=== PATIENT | female | born 1990 | race Caucasian/White ===

== ENCOUNTER → 2017-03-18 | Outpatient (CLI) | payer OTHER ==
--- NOTE | 2017-03-18 16:21 | US ---
EXAMINATION TYPE: US thyroid st tissue head/neck DATE OF EXAM: 03/18/2017 4:01 PM COMPARISON: 07/27/2016 CLINICAL HISTORY: E04.1 Nontoxic single thyroid nodule. Prior FNA GLAND SIZE: Right Lobe: 5.1 x 1.8 x 1.3 cm Overall Parenchyma: homogenous Left Lobe: 4.3 x 1.6 x 1.1 cm Overall Parenchyma: homogeneous Isthmus Thickness: 0.4 cm NODULES RIGHT: # of nodules measured on right: 1 1. 1.1 X 0.6 x 0.5 cm hypoechoic mixed nodule at the mid pole with well-defined margins. This nodu le is wider than tall and shows no intranodular vascularity. Prior size: 1.9 x 1.5 x 1.1 cm LEFT: # of nodules measured on left: 0 ISTHMUS: # of nodules measured in the isthmus: 0 1 Bilateral neck scanned, no evidence of lymphadenopathy. IMPRESSION: 1. Nonspecific nodule right thyroid lobe. Nodule is smaller in size and on the prior examination. The need to biopsy should be made on a clinical basis.
[2017-03-18 16:35] LABS: CH 30.2; CHCM 33.2; HCT 47.8 % (34.0-46.0); HDW 2.32; HGB 15.1 gm/dL (11.4-16.0); MCH 28.8 pg (25.0-35.0); MCHC 31.6 g/dL (31.0-37.0); MCV 91.4 fL (80.0-100.0); Mean Platelet Volume 6.7; RBC 5.24 m/uL (3.80-5.40); WBC 18.5 k/uL (3.8-10.6)
[2017-03-18 16:55] LABS: % Iron Saturation 42.2 % (20-50)
== END | disposition home or self-care (01) ==
LOC: RADUSWWP 15:37
PROVIDERS: ATTEND Internal Medicine Endocrinology, Diabetes & Metabolism
DX: E04.1 Nontoxic single thyroid nodule (principal); E55.9 Vitamin D deficiency, unspecified; R53.83 Other fatigue
CPT/HCPCS: 36415; 76536; 82306; 82533; 82607; 82728; 83540; 83550; 84439; 84443; 85027

== ENCOUNTER → 2017-11-12 | Outpatient (CLI) | payer OTHER ==
[2017-11-12 19:05] LABS: Vitamin D 25 Hydroxy 25.2 ng/mL (30.0-100.0)
== END | disposition home or self-care (01) ==
LOC: LABWHC1 12:55
PROVIDERS: ATTEND Internal Medicine Endocrinology, Diabetes & Metabolism
DX: E55.9 Vitamin D deficiency, unspecified (principal); R53.83 Other fatigue
CPT/HCPCS: 36415; 82024; 82306; 82533

== ENCOUNTER → 2018-01-28 | Outpatient (CLI) | payer OTHER ==
--- NOTE | 2018-01-28 11:32 | US ---
EXAMINATION TYPE: US pelvis complete transvag DATE OF EXAM: 01/28/2018 COMPARISON: CT abdomen pelvis 10/28/2015, ultrasound pelvis 05/18/2016 CLINICAL HISTORY: N83.20 Unspecified Ovarian Cysts. known left ovarian teratoma TECHNIQUE: TA and TV. Transabdominal sonographic images of the pelvis were acquired. Transvaginal sonographic images were medically necessary to better assess the following anatomy: left ovary Date of LMP: unknown EXAM MEASUREMENTS: Uterus: 8.8 x 4.3 x 4.1 cm Endometrial Stripe: 1.2 cm Right Ovary: 3.4 x 2.3 x 3.0 cm Left Ovary: 7.5 x 7.1 x 8.5 cm 1. Uterus: Anteverted mild free fluid noted within cervical canal 2. Endometrium: wnl 3. Right Ovary: 2.6cm hypoechoic focus possibly hemorrhagic cyst seen, could not image ovary transva ginally 4. Left Ovary: 8.2cm complex lesion seen with echogenic focus transvaginally with solid component 5. Bilateral Adnexa: wnl 6. Posterior cul-de-sac: wnl IMPRESSION: Ovarian teratoma has grown somewhat in the interval. Small amount of fluid is noted in th e lower uterine segment, cervix region
== END | disposition home or self-care (01) ==
LOC: RADUSWWP 08:35
PROVIDERS: ATTEND Obstetrics & Gynecology
DX: D27.1 Benign neoplasm of left ovary (principal)
CPT/HCPCS: 76830; 76856

== ENCOUNTER → 2018-01-28 | Outpatient (CLI) | payer OTHER ==
--- NOTE | 2018-01-28 13:20 | US ---
EXAMINATION TYPE: US abdomen limited DATE OF EXAM: 01/28/2018 COMPARISON: NONE CLINICAL HISTORY: Abnormal Liver Function tests R94.5. epigastric pain EXAM MEASUREMENTS: Liver Length: 15.9 cm Gallbladder Wall: 0.3 cm CBD: 0.3 cm Right Kidney: 9.4 x 5.3 x 4.6 cm *overlying bowel gas and body habitus limits exam Pancreas: limited views Liver: intercostal imaging only due to reasons stated above and the ultrasound poorly penetrates th e liver Gallbladder: fold seen, otherwise wnl Evidence for sonographic Madrigal's sign: no CBD: wnl Right Kidney: wnl Cortical medullary differentiation is maintained. There is no ascites. IMPRESSION: There are some limitations to the exam. Correlate for hepatic steatosis.
== END ==
LOC: RADUSWWP 08:33
PROVIDERS: ATTEND Internal Medicine Gastroenterology
DX: K21.9 Gastro-esophageal reflux disease without esophagitis (principal); K30 Functional dyspepsia; R94.5 Abnormal results of liver function studies; E78.5 Hyperlipidemia, unspecified
CPT/HCPCS: 76705

== ENCOUNTER → 2018-05-12 | Outpatient (CLI) | payer OTHER ==
--- NOTE | 2018-05-12 12:55 | US ---
EXAMINATION TYPE: US thyroid st tissue head/neck DATE OF EXAM: 05/12/2018 COMPARISON: 03/18/2017 CLINICAL HISTORY: 27-year-old female E04.1 NONTOXIC SINGLE THYROID NODULE. F/U TECHNIQUE: Multiple sonographic images of the thyroid gland are obtained. FINDINGS: GLAND SIZE: Right Lobe: 5.2 x 1.3 x 1.7 cm Overall Parenchyma: homogenous Left Lobe: 4.7 x 1.1 x 1.5 cm Overall Parenchyma: homogeneous Isthmus Thickness: 0.3 cm NODULES RIGHT: # of nodules measured on right: 1 1. 1.0 X 0.6 x 0.5 cm hypoechoic solid nodule at the mid pole with poorly defined margins; this nod ule is wider than tall and shows some peripheral vascularity. Prior size: 1.1 x 0.6 x 0.5 cm Bilateral neck scanned, no evidence of lymphadenopathy. Stable nodule on right. IMPRESSION: Stable 1 cm solid nodule right mid pole.
== END | disposition home or self-care (01) ==
LOC: RADUSWWP 11:13
PROVIDERS: ATTEND Internal Medicine Endocrinology, Diabetes & Metabolism
DX: E04.1 Nontoxic single thyroid nodule (principal)
CPT/HCPCS: 76536

== ENCOUNTER → 2018-05-12 | Outpatient (CLI) | payer OTHER ==
[2018-05-12 12:18] LABS: Anion Gap 10 mmol/L; Blood Urea Nitrogen 14 mg/dL (7-17); Calcium 9.2 mg/dL (8.4-10.2); Carbon Dioxide 25 mmol/L (22-30); Chloride 105 mmol/L (98-107); Cholesterol 257 mg/dL (<200); Glucose 90 mg/dL (74-99); HDL Cholesterol 49 mg/dL (40-60); LDL Cholesterol,Calculated 186 mg/dL (0-99); Sodium 140 mmol/L (137-145); Triglycerides 108 mg/dL (<150)
[2018-05-12 12:35] LABS: T4, Free (Free Thyroxine) 1.07 ng/dL (0.78-2.19)
[2018-05-12 20:09] LABS: Vitamin D 25 Hydroxy 28.8 ng/mL (30.0-100.0)
== END | disposition home or self-care (01) ==
LOC: LABWHC1 11:05
PROVIDERS: ATTEND Internal Medicine Endocrinology, Diabetes & Metabolism
DX: Z00.01 Encounter for general adult medical examination with abnormal findings (principal); E55.9 Vitamin D deficiency, unspecified; R63.8 Other symptoms and signs concerning food and fluid intake; R53.83 Other fatigue; E04.9 Nontoxic goiter, unspecified; Z13.1 Encounter for screening for diabetes mellitus; E78.00 Pure hypercholesterolemia, unspecified
CPT/HCPCS: 36415; 80048; 80061; 82306; 82607; 84439; 84443

== ENCOUNTER → 2018-08-01 | Outpatient (CLI) | payer OTHER ==
--- NOTE | 2018-08-01 14:52 | US ---
EXAMINATION TYPE: Transabdominal DATE OF EXAM: 02/08/18 COMPARISON: US January 28, 2018. CT abdomen pelvis October 28, 2015. CLINICAL HISTORY: Z36 confirm dates. Positive beta-hCG test. EXAM PERFORMED: Transabdominal (TA), patient refused transvag EXAM MEASUREMENTS: GESTATIONAL AGE / DATING Physician Established: Not yet established Dates by LMP: ( 9 weeks/2 days) EDC: 03/04/19 Dates by First Scan: No previous this is first scan Dates by Current Scan for: (9 weeks/ 0 days) EDC: 03/06/19 MATERNAL ANATOMY Uterus: 12.3 x 5.0 x 7.8cm Right Ovary: 3.6 x 2.5 x 2.4cm Left Ovary: 7.9 x 5.4 x 5.3cm, hyperechoic mass measuring 4.1 x 4.1 x 3.5cm Post CDS / Adnexa: wnl Presence of free fluid: Presence of subchorionic bleed: no GESTATION / SURVEY CRL: 2.3cm (9 weeks/0 days) Yolk Sac (normal less than 6mm): 0.3cm Heart Rate: 160 bpm Rhythm: Normal IUP: Viable IUP Date of LMP: 05/28/18 Beta HcG (if available): Not available at this time Single live intrauterine gestation is confirmed as gestational sac, yolk sac, pole are present. No free fluid is seen in pelvic cul-de-sac. Both ovaries are present. Within left ovary there is persistent heterogeneous solid mass that has rou nd hyperechoic 4.1 cm component along the periphery with surrounding low level echoes or hypoechoic c omponent. Overall size is not significantly changed from prior. No new suspicious extraovarian adnexa l masses are seen. IMPRESSION: Single live intrauterine gestation is confirmed, mean crown-rump length is 2.3 cm corresponding to 9 weeks 0 day old fetus. Solid left ovarian mass or neoplasm consistent with known teratoma is redemons trated without significant change from 2015 CT.
== END ==
LOC: RADUSWWP 13:02
PROVIDERS: ATTEND Obstetrics & Gynecology
DX: Z36.89 Encounter for other specified antenatal screening (principal); Z3A.09 9 weeks gestation of pregnancy
CPT/HCPCS: 76801

== ENCOUNTER → 2018-12-13 | Outpatient (CLI) | payer OTHER ==
--- NOTE | 2018-12-13 15:54 | US ---
EXAMINATION TYPE: US thyroid st tissue head/neck DATE OF EXAM: 12/13/2018 COMPARISON: Prior thyroid ultrasound 05/12/2018 CLINICAL HISTORY: E04.1 Thyroid Nodule. Follow up nodule. No thyroid meds. Hx of Bx- inconclusive GLAND SIZE: Right Lobe: 5.1 x 2.1 x 1.5 cm Overall Parenchyma: homogenous Left Lobe: 4.7 x 1.8 x 0.9 cm Overall Parenchyma: homogeneous Isthmus Thickness: 0.3 cm NODULES RIGHT: # of nodules measured on right: 1 1. 0.9 X 0.8 x 0.6 cm hypoechoic solid nodule at the mid pole with poorly defined margins. This no dule is wider than tall and shows intranodular and peripheral vascularity. Prior size: 1.0 x 0.6 x 0.5 cm LEFT: # of nodules measured on left: 0 ISTHMUS: # of nodules measured in the isthmus: 0 Bilateral neck scanned, no evidence of lymphadenopathy. Right-sided thyroid nodule somewhat more hypoechoic than on prior exam. Left lobe shows homogenous ec hotexture. IMPRESSION: Thyroid nodule shows a similar size to prior exam, additional findings above.
== END ==
LOC: RADUSWWP 12:23
PROVIDERS: ATTEND Internal Medicine Endocrinology, Diabetes & Metabolism
DX: E04.1 Nontoxic single thyroid nodule (principal)
CPT/HCPCS: 76536

== ENCOUNTER → 2018-12-13 | Outpatient (CLI) | payer OTHER ==
[2018-12-13 14:00] LABS: HGB 12.5 gm/dL (11.4-16.0); MCH 29.4 pg (25.0-35.0); MCHC 33.7 g/dL (31.0-37.0); MCV 87.4 fL (80.0-100.0); Mean Platelet Volume 6.7; Platelet Count 307 k/uL (150-450); RBC 4.23 m/uL (3.80-5.40); RDW 13.4 % (11.5-15.5); WBC 13.5 k/uL (3.8-10.6)
[2018-12-13 20:49] LABS: T4, Free (Free Thyroxine) 0.9 ng/dL (0.80-1.80)
== END | disposition home or self-care (01) ==
LOC: LABWHC1 12:20
PROVIDERS: ATTEND Obstetrics & Gynecology
DX: O99.282 Endocrine, nutritional and metabolic diseases complicating pregnancy, second trimester (principal); E04.1 Nontoxic single thyroid nodule; Z3A.00 Weeks of gestation of pregnancy not specified
CPT/HCPCS: 36415; 82950; 84439; 84443; 85027

== ENCOUNTER 2019-03-03 07:43 | Inpatient (IN) | payer OTHER ==
[2019-03-03 08:55] LABS: Appearance,Urine Clear (Clear); Bilirubin,Urine Negative (Negative); Blood,Urine Negative (Negative); Color,Urine Yellow; Glucose,Urine (UA) Negative (Negative); Ketones,Urine Negative (Negative); Leukocyte Esterase,Urine Negative (Negative); Nitrite,Urine Negative (Negative); PH, Urine 6.5 (5.0-8.0); Protein,Urine Negative (Negative); Specific Gravity,Urine 1.014 (1.001-1.035); Urobilinogen,Urine <2.0 mg/dL (<2.0)
[2019-03-03] MEDS ORDERED: METHYLERGONOVINE 0.2 MG/ML 1 ML AMP IM PRN (09:23)
[2019-03-03] MEDS ORDERED: TERBUTALINE 1 MG/ML VIAL SQ PRN (09:23)
[2019-03-03] MEDS ORDERED: LIDOCAINE 0.5% (PF) 5 MG/ML (50 ML SDV) SQ PRN (09:23)
[2019-03-03] MEDS ORDERED: OXYTOCIN 10 UNIT/ML 1 ML VIAL IM PRN (09:23)
[2019-03-03] MEDS ORDERED: CARBOPROST TROMETHAMINE 250 MCG/ML 1 ML AMP IM PRN (09:23)
[2019-03-03] MEDS ORDERED: OXYTOCIN 30 UNITS/500 ML NS 30 UNIT in SALINE 1 500ML.BAG IV SCH (09:30)
[2019-03-03 09:40] VITALS: BMI 47.6
[2019-03-03 10:12] LABS: Basophils % (A) 0 %; Eosinophils % (A) 0 %; HCT 37.7 % (34.0-46.0); HGB 12.3 gm/dL (11.4-16.0); Lymphocytes # (A) 2.8 k/uL (1.0-4.8); Lymphocytes % (A) 17 %; MCH 27.1 pg (25.0-35.0); MCHC 32.7 g/dL (31.0-37.0); MCV 82.8 fL (80.0-100.0); Mean Platelet Volume 7.7; Monocytes # (A) 0.5 k/uL (0-1.0); Monocytes % (A) 3 %; Neutrophils # (A) 12.4 k/uL (1.3-7.7); Neutrophils % (A) 78 %; Platelet Count 328 k/uL (150-450); RBC 4.55 m/uL (3.80-5.40); WBC 15.9 k/uL (3.8-10.6)
[2019-03-03 10:20] LABS: ALT 31 U/L (9-52); AST 12 U/L (14-36); Blood Urea Nitrogen 9 mg/dL (7-17); LDH 346 U/L (313-618); Uric Acid 5.8 mg/dL (3.7-7.4)
[2019-03-03 10:25] LABS: INR 0.8 (<1.2); Partial Thromboplastin Time 22.1 sec (22.0-30.0); Prothrombin Time 9.3 sec (9.0-12.0)
[2019-03-03] MEDS: LACTATED RINGERS 1,000 ML IV SCH ×2 (11:27→11:35)
[2019-03-03] MEDS ORDERED: LANOLIN CREAM 5 GM TUBE TOPICAL PRN (15:22)
[2019-03-03] MEDS ORDERED: diphenhydrAMINE 50 MG CAP PO PRN (15:22)
[2019-03-03] MEDS ORDERED: diphenhydrAMINE 50 MG/ML 1 ML VIAL IVP PRN ×2 (15:22)
[2019-03-03] MEDS ORDERED: WITCH HAZEL 1 EACH MED..PAD TOPICAL PRN (15:22)
[2019-03-03] MEDS ORDERED: ZOLPIDEM 5 MG TAB PO PRN (15:22)
[2019-03-03] MEDS ORDERED: SIMETHICONE 80 MG CHEWABLE PO PRN (15:22)
[2019-03-03] MEDS ORDERED: HYDROCORTISONE 2.5% RECTAL CREAM 30 GM TUBE RECTAL PRN (15:22)
[2019-03-03] MEDS ORDERED: BENZOCAINE/MENTHOL SPRAY 1 GM/SPRAY AEROSOL TOPICAL PRN (15:22)
[2019-03-03] MEDS ORDERED: diphenhydrAMINE 25 MG CAP PO PRN (15:22)
[2019-03-03] MEDS: IBUPROFEN 600 MG TAB PO PRN ×2 (15:29→22:21)
[2019-03-03] MEDS ORDERED: OXYTOCIN 20 UNITS/1000 ML NS 1,000 ML IV SCH (15:30)
--- NOTE | 2019-03-03 16:21 | P.PROBDLV ---
Vaginal Delivery Note - . Vaginal Delivery Note: Patient progressed complete and pushing with spontaneous vaginal delivery of a viable female over a second-degree midline laceration. Following deliver the head anterior and posterior shoulders were delivered gentle downward upper traction followed by the remainder the baby. Mouth and nares were then bulb suctioned and baby was placed on mother's abdomen where the umbilical cord was allowed to pulsate for 45 seconds prior to clamping and cutting. Once this was accomplished nursery personnel was present and assumed care. Placenta was then delivered intact and Pitocin was added to the IV. Second degree midline laceration was then repaired with 3-0 Vicryl following 1% Xylocaine for analgesia. Both mother and baby are stable following delivery.
--- NOTE | 2019-03-03 16:21 | P.HPOB ---
History of Present Illness H&P Date: 03/03/19 Chief Complaint: Intrauterine at term: Active labor Patient is 28-year-old at 38 weeks who is in active labor making cervical change. Her course was unremarkable according to her and she had no other significant problems. 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 Otherwise she has no other medical issues or complaints. Vital signs are stable and afebrile. Heart regular, lungs clear, extremities without pain. She was dilated to 4-5 cm added to admission and a category 1 tracing was noted. Assessment intrauterine at term. Plan expect spontaneous vaginal delivery. She plans to use epidural for analgesia. Past Medical History Past Medical History: Hyperlipidemia, Thyroid Disorder Additional Past Medical History / Comment(s): SEASONAL ALLERGIES. Hypothyroidism, patient has 8 month old and is currently breast feeding. History of Any Multi-Drug Resistant Organisms: None Reported Past Surgical History: Orthopedic Surgery Additional Past Surgical History / Comment(s): Left Wrist. Past Anesthesia/Blood Transfusion Reactions: No Reported Reaction Additional Past Anesthesia/Blood Transfusion Reaction / Comment(s): STATES IT "TAKES A LOT OF ANESTHESIA AND IT WEARS OFF QUICKLY". Lidocaine usually never works and she never really gets numb. Past Psychological History: No Psychological Hx Reported Smoking Status: Never smoker Past Alcohol Use History: None Reported Past Drug Use History: None Reported - Past Family History Mother Family Medical History: Cancer Additional Family Medical History / Comment(s): Thyroid Cancer Father History Unknown: Yes Family Medical History: Coronary Artery Disease (CAD), Hyperlipidemia Medications and Allergies Home Medications Medication Instructions Recorded Confirmed Type Pnv,Calcium 72/Iron/Folic Acid 1 each PO DAILY 08/06/16 03/03/19 History [ Plus Tablet] Allergies Allergy/AdvReac Type Severity Reaction Status Date / Time No Known Allergies Allergy Verified 03/03/19 07:57 Exam Osteopathic Statement: *. No significant issues noted on an osteopathic structural exam other than those noted in the History and Physical/Consult. Vital Signs Temp Pulse Resp BP BP Pulse Ox 03/03/19 16:13 97.6 F 118 H 16 139/65 03/03/19 16:00 97.6 F 118 H 16 139/65 03/03/19 15:43 97.6 F 99 16 121/64 03/03/19 15:13 92 16 100/57 03/03/19 14:58 93 16 102/52 03/03/19 14:43 97.1 F L 100 16 108/58 03/03/19 14:28 102 H 16 106/50 03/03/19 14:13 97.4 F L 105 H 16 124/59 03/03/19 09:23 98.1 F 104 H 16 144/71 95 03/03/19 08:58 98.1 F 104 H 16 144/71 95 03/03/19 07:58 98.1 F 104 H 16 144/71 95 Intake and Output 03/03/19 03/03/19 03/03/19 06:59 14:59 22:59 Output Total 100 Balance -100 Output: Urine 100 Other: # Voids 1 1 Weight 133.81 kg Results Result Diagrams: 03/03/19 09:52 03/03/19 09:52 Abnormal Lab Results - Last 24 Hours (Table) 03/03/19 03/03/19 03/03/19 Range/Units 09:52 09:52 09:52 WBC 15.9 H (3.8-10.6) k/uL Neutrophils # 12.4 H (1.3-7.7) k/uL Fibrinogen 567 H (200-500) mg/dL Creatinine 0.51 L (0.52-1.04) mg/dL AST 12 L (14-36) U/L
[2019-03-03] MEDS ORDERED: SENNOSIDES-DOCUSATE SODIUM 1 EACH TAB PO SCH (20:00)
[2019-03-03] MEDS: ACETAMINOPHEN TAB 325 MG TAB PO PRN (20:31)
[2019-03-04] MEDS: IBUPROFEN 600 MG TAB PO PRN ×2 (04:24→10:11)
[2019-03-04 06:50] LABS: Basophils % (A) 0 %; Eosinophils # (A) 0.1 k/uL (0-0.7); Eosinophils % (A) 0 %; HCT 35.1 % (34.0-46.0); HGB 11.4 gm/dL (11.4-16.0); Lymphocytes # (A) 2.7 k/uL (1.0-4.8); Lymphocytes % (A) 20 %; MCH 27.1 pg (25.0-35.0); MCHC 32.6 g/dL (31.0-37.0); MCV 83.1 fL (80.0-100.0); Mean Platelet Volume 8.6; Monocytes # (A) 0.6 k/uL (0-1.0); Monocytes % (A) 5 %; Neutrophils # (A) 9.8 k/uL (1.3-7.7); Neutrophils % (A) 74 %; Platelet Count 250 k/uL (150-450); RBC 4.22 m/uL (3.80-5.40); RDW 14.9 % (11.5-15.5); WBC 13.3 k/uL (3.8-10.6)
[2019-03-04 07:45] VITALS: BP 121/79; PULSE 97; RESP 18; TEMP 98.2
[2019-03-04] MEDS: LACTATED RINGERS 1,000 ML IV SCH (07:46)
[2019-03-04] MEDS: ACETAMINOPHEN TAB 325 MG TAB PO PRN (08:12)
--- NOTE | 2019-03-04 08:59 | P.DS ---
Providers Date of admission: 03/03/19 09:16 Expected date of discharge: 03/04/19 Attending physician: Emperatriz Willis Primary care physician: Stated None Hospital Course: Patient is doing very well day 1. She is ambulating, voiding, and she is tolerating her diet. She voices no complaints. Vital signs are stable and afebrile. Heart regular, lungs clear, extremities without pain. Abdomen soft and uterus is firm. Lochia is reported be light. Assessment day 1. Plan discharged home follow up with Dr. Willis in 6 weeks. Prescription for Motrin was sent to the pharmacy and all the questions were answered for her prior to discharge. Discharge instructions were thoroughly reviewed. Patient Condition at Discharge: Good Plan - Discharge Summary Discharge Rx Participant: Yes New Discharge Prescriptions: New Ibuprofen [Motrin] 600 mg PO Q6HR PRN #30 tab PRN Reason: Pain No Action Pnv,Calcium 72/Iron/Folic Acid [ Plus Tablet] 1 each PO DAILY Discharge Medication List Pnv,Calcium 72/Iron/Folic Acid [ Plus Tablet] 1 each PO DAILY 08/06/16 [History] Ibuprofen [Motrin] 600 mg PO Q6HR PRN #30 tab 03/04/19 [Rx] Follow up Appointment(s)/Referral(s): Emperatriz Willis DO [Doctor of Osteopathic Medicine] - 1 Week Activity/Diet/Wound Care/Special Instructions: No heavy lifting, limit stairs and driving, and pelvic rest. If any high temperatures, heavy bleeding, or severe pain call my office Discharge Disposition: HOME SELF-CARE
== END 2019-03-04 15:00 | disposition home or self-care (01) | DRG 807 ==
LOC: FBPOP 07:43 → 4FBP 09:16
PROVIDERS: ADMIT Obstetrics & Gynecology; ATTEND Obstetrics & Gynecology
PROC: 10E0XZZ Delivery of Products of Conception, External Approach (ICD-10-PCS; principal; 2019-03-03)
PROC: 0KQM0ZZ Repair Perineum Muscle, Open Approach (ICD-10-PCS; 2019-03-03)
DX: O99.284 Endocrine, nutritional and metabolic diseases complicating childbirth (principal); Z37.0 Single live birth; O70.1 Second degree perineal laceration during delivery; O75.89 Other specified complications of labor and delivery; E03.9 Hypothyroidism, unspecified; Z3A.38 38 weeks gestation of pregnancy; E78.5 Hyperlipidemia, unspecified; Z82.49 Family history of ischemic heart disease and other diseases of the circulatory system; Z80.8 Family history of malignant neoplasm of other organs or systems
CPT/HCPCS: 59025; 81003; 82565; 83615; 84112; 84450; 84460; 84520; 84550; 85025; 85384; 85610; 85730; 86850; 86900; 86901; 99213

== ENCOUNTER 2019-03-21 00:12 | Observation (INO) | payer OTHER ==
[2019-03-21] MEDS ORDERED: SODIUM CHLORIDE 0.9% 1,000 ML IV STA (00:44)
[2019-03-21 01:12] LABS: Basophils # (A) 0.1 k/uL (0-0.2); Basophils % (A) 1 %; Eosinophils # (A) 0.1 k/uL (0-0.7); Eosinophils % (A) 1 %; HCT 46.1 % (34.0-46.0); HGB 14.3 gm/dL (11.4-16.0); Lymphocytes # (A) 2.7 k/uL (1.0-4.8); Lymphocytes % (A) 28 %; MCH 26.8 pg (25.0-35.0); MCHC 31.1 g/dL (31.0-37.0); MCV 86.2 fL (80.0-100.0); Mean Platelet Volume 7.1; Monocytes # (A) 0.3 k/uL (0-1.0); Monocytes % (A) 3 %; Neutrophils # (A) 6.4 k/uL (1.3-7.7); Neutrophils % (A) 66 %; Platelet Count 340 k/uL (150-450); RBC 5.34 m/uL (3.80-5.40); RDW 14.8 % (11.5-15.5); WBC 9.7 k/uL (3.8-10.6)
[2019-03-21 01:18] LABS: ALT 35 U/L (9-52); AST 27 U/L (14-36); Albumin 4.1 g/dL (3.5-5.0); Alkaline Phosphatase 117 U/L (38-126); Amylase 54 U/L (30-110); Anion Gap 10 mmol/L; Blood Urea Nitrogen 15 mg/dL (7-17); Calcium 9.9 mg/dL (8.4-10.2); Carbon Dioxide 24 mmol/L (22-30); Chloride 108 mmol/L (98-107); Glucose 95 mg/dL (74-99); Lipase 48 U/L (23-300); Potassium 4.3 mmol/L (3.5-5.1); Sodium 142 mmol/L (137-145); Total Bilirubin 0.5 mg/dL (0.2-1.3); Total Protein 7.7 g/dL (6.3-8.2)
--- NOTE | 2019-03-21 01:43 | US ---
EXAM: US Abdomen Complete CLINICAL HISTORY: ITS.REASON US Reason: Pain TECHNIQUE: Real-time ultrasound of the abdomen (complete) with image documentation. COMPARISON: Ultrasound abdomen on 01/28/2018 FINDINGS: Liver: Measures 21.1 cm, enlarged. Normal echotexture and contour. No focal lesion. Portal vein: Patent with normal direction of flow. Gallbladder: Stones and sludge in a mildly distended gallbladder. Nonspecific borderline prominence of the gallbladder wall. No pericholecystic fluid. Reportedly positive sonographic Madrigal's sign. Biliary tree: No abnormal dilatation. Common bile duct measures 3.8 mm. Pancreas: Not well visualized, but visualized portions are unremarkable. Right kidney: Measures 10.2 cm in length. No hydronephrosis or stone. No mass. Peritoneal space: Normal. No free fluid. IVC: Visualized portions are unremarkable. IMPRESSION: 1. Stones and sludge in a mildly distended gallbladder. Reportedly positive sonographic Madrigal's sign. Findings could represent acute cholecystitis. 2. Hepatomegaly.
--- NOTE | 2019-03-21 02:33 | ED ---
General Adult HPI - General Chief complaint: Back Pain/Injury Stated complaint: Back Pain Time Seen by Provider: 03/21/19 00:31 Source: patient, family Mode of arrival: ambulatory Limitations: no limitations - History of Present Illness Initial comments: 28-year-old female patient presents to the emergency department today for evaluation of right upper quadrant pain that radiates through to her back and into her right shoulder. Patient states that she has been having intermittent episodes throughout her . States that she is 2 weeks after normal vaginal delivery. States that the pain started again earlier today and has lasted for more than 6 hours. States the pain is intense and aching in nature. States she has been nauseated but has not vomited. She denies any fever or chills with this. Denies any constipation or diarrhea. Patient denies any recent rash, shortness breath, chest pain, abdominal pain, diarrhea, const ipation, back pain, numbness, tingling, dizziness, weakness, hematuria, dysuria, urinary urgency, urinary frequency, headache, visual changes, or any other complaints. - Related Data Home Medications Medication Instructions Recorded Confirmed Pnv,Calcium 72/Iron/Folic Acid 1 each PO DAILY 08/06/16 03/03/19 [ Plus Tablet] Previous Rx's Medication Instructions Recorded Ibuprofen [Motrin] 600 mg PO Q6HR PRN #30 tab 03/04/19 Allergies Allergy/AdvReac Type Severity Reaction Status Date / Time No Known Allergies Allergy Verified 03/21/19 00:23 Review of Systems ROS Statement: Those systems with pertinent positive or pertinent negative responses have been documented in the HPI. ROS Other: All systems not noted in ROS Statement are negative. Past Medical History Past Medical History: Hyperlipidemia, Thyroid Disorder Additional Past Medical History / Comment(s): SEASONAL ALLERGIES. Hypothyroidism, patient has 8 month old and is currently breast feeding. History of Any Multi-Drug Resistant Organisms: None Reported Past Surgical History: Orthopedic Surgery Additional Past Surgical History / Comment(s): Left Wrist. Past Anesthesia/Blood Transfusion Reactions: No Reported Reaction Additional Past Anesthesia/Blood Transfusion Reaction / Comment(s): STATES IT "TAKES A LOT OF ANESTHESIA AND IT WEARS OFF QUICKLY". Lidocaine usually never works and she never really gets numb. Past Psychological History: No Psychological Hx Reported Smoking Status: Never smoker Past Alcohol Use History: None Reported Past Drug Use History: None Reported - Past Family History Mother Family Medical History: Cancer Additional Family Medical History / Comment(s): Thyroid Cancer Father History Unknown: Yes Family Medical History: Coronary Artery Disease (CAD), Hyperlipidemia General Exam Limitations: no limitations General appearance: alert, in no apparent distress, other (Physical well- developed, well-nourished adult female patient in no acute distress. Vital signs upon presentation are temperature 98.4F, pulse 76, respirations 20, blood pressure 114/64, pulse ox 100% on room air.) Eye exam: Present: normal appearance, PERRL, EOMI. Absent: scleral icterus, conjunctival injection, periorbital swelling ENT exam: Present: normal exam, normal oropharynx, mucous membranes moist Respiratory exam: Present: normal lung sounds bilaterally. Absent: respiratory distress, wheezes, rales, rhonchi, stridor Cardiovascular Exam: Present: regular rate, normal rhythm, normal heart sounds. Absent: systolic murmur, diastolic murmur, rubs, gallop, clicks GI/Abdominal exam: Present: soft, tenderness (Right upper quadrant tenderness. Positive Madrigal sign.), normal bowel sounds. Absent: distended, guarding, rebound, rigid Neurological exam: Present: alert, oriented X3, CN II-XII intact Psychiatric exam: Present: normal affect, normal mood Skin exam: Present: warm, dry, intact, normal color. Absent: rash Course Vital Signs 03/21/19 00:18 Temperature 98.4 F Pulse Rate 76 Respiratory 20 Rate Blood Pressure 114/64 O2 Sat by Pulse 100 Oximetry Medical Decision Making - Medical Decision Making 28-year-old female patient presents to the emergency department today for evaluation of right upper quadrant pain radiating into her back and her right shoulder. Patient is reporting nausea with this but denies any vomiting. Physical examination did reveal right upper quadrant tenderness and positive Madrigal sign. Labs reviewed and are unremarkable. Ultrasound of the abdomen was obtained and did show mildly distended gallbladder with sludge and possible stones. Positive sonographic Madrigal sign. Case was discussed with the on-call surgeon Dr. Melendrez who will reevaluate the patient in the morning. Did discuss findings and results with the patient, she is agreeable with admission. - Lab Data Result diagrams: 03/21/19 00:42 03/21/19 00:42 Lab Results 03/21/19 03/21/19 Range/Units 00:42 00:42 WBC 9.7 (3.8-10.6) k/uL RBC 5.34 (3.80-5.40) m/uL Hgb 14.3 (11.4-16.0) gm/dL Hct 46.1 H (34.0-46.0) % MCV 86.2 (80.0-100.0) fL MCH 26.8 (25.0-35.0) pg MCHC 31.1 (31.0-37.0) g/dL RDW 14.8 (11.5-15.5) % Plt Count 340 (150-450) k/uL Neutrophils % 66 % Lymphocytes % 28 % Monocytes % 3 % Eosinophils % 1 % Basophils % 1 % Neutrophils # 6.4 (1.3-7.7) k/uL Lymphocytes # 2.7 (1.0-4.8) k/uL Monocytes # 0.3 (0-1.0) k/uL Eosinophils # 0.1 (0-0.7) k/uL Basophils # 0.1 (0-0.2) k/uL Sodium 142 (137-145) mmol/L Potassium 4.3 (3.5-5.1) mmol/L Chloride 108 H (98-107) mmol/L Carbon Dioxide 24 (22-30) mmol/L Anion Gap 10 mmol/L BUN 15 (7-17) mg/dL Creatinine 0.78 (0.52-1.04) mg/dL Est GFR (CKD-EPI)AfAm >90 (>60 ml/min/1.73 sqM) Est GFR (CKD-EPI)NonAf >90 (>60 ml/min/1.73 sqM) Glucose 95 (74-99) mg/dL Calcium 9.9 (8.4-10.2) mg/dL Total Bilirubin 0.5 (0.2-1.3) mg/dL AST 27 (14-36) U/L ALT 35 (9-52) U/L Alkaline Phosphatase 117 (38-126) U/L Total Protein 7.7 (6.3-8.2) g/dL Albumin 4.1 (3.5-5.0) g/dL Amylase 54 (30-110) U/L Lipase 48 (23-300) U/L - Radiology Data Radiology results: report reviewed Ultrasound of the right upper quadrant abdomen was obtained. Report was reviewed in its entirety. Impression by Dr. Salinas shows stones and sludge and a mildly distended gallbladder. Reportedly positive sonographic Madrigal sign. Findings could represent acute cholecystitis. Hepatomegaly. Disposition Clinical Impression: Acute cholecystitis Disposition: ADMITTED IP TO THIS [facility] Condition: Serious Decision to Admit Reason: Admit from EC Decision Date: 03/21/19 Decision Time: 03:46
[2019-03-21] MEDS ORDERED: HYDROcodone/APAP 5-325MG 1 EACH TAB PO PRN (02:34)
[2019-03-21] MEDS ORDERED: NALOXONE 0.4 MG/ML 1 ML VIAL IV PRN (02:34)
[2019-03-21] MEDS ORDERED: ONDANSETRON 4 MG/2 ML VIAL IVP PRN (02:34)
[2019-03-21] MEDS ORDERED: SODIUM CHLORIDE 0.9% 1,000 ML IV SCH (02:45)
[2019-03-21 09:42] VITALS: BMI 43.5
--- NOTE | 2019-03-21 11:44 | P.GSHP ---
<Kena Aguirre A - Last Filed: 03/21/19 11:41> History of Present Illness H&P Date: 03/21/19 Chief Complaint: abdominal pain CHIEF COMPLAINT: Abdominal pain HISTORY OF PRESENT ILLNESS: 28-year-old female presented to the emergency room with a chief complaint of right upper quadrant abdominal pain. Patient just gave 2 weeks ago and states she had multiple gallbladder attacks throughout her , but states this is the most severe it has been. Reports nausea. Denies vomiting. Denies diarrhea or constipation. PAST MEDICAL HISTORY: See list. PAST SURGICAL HISTORY: See list. SOCIAL HISTORY: No illicit drug use. REVIEW OF SYSTEMS: CONSTITUTIONAL: Denies fever or chills. HEENT: Denies blurred vision, vision changes, or eye pain. Denies hemoptysis CARDIOVASCULAR: Denies chest pain or pressure. RESPIRATORY: No shortness of breath. GASTROINTESTINAL: Refer to HPI for pertinent findings HEMATOLOGIC: Denies bleeding disorders. GENITOURINARY: Denies any blood in urine. SKIN: Denies pruitis. Denies rash. PHYSICAL EXAM: VITAL SIGNS: Reviewed. GENERAL: Well-developed in no acute distress. HEENT: No sclera icterus. Extraocular movements grossly intact. Moist buccal mucosa. Head is atraumatic, normocephalic. ABDOMEN: Soft. Nondistended. Mild epigastric tenderness NEUROLOGIC: Alert and oriented. Cranial nerves II through XII grossly intact. LABORATORY DATA: WBC 9.6. Hemoglobin 14.3. Bilirubin 0.5. AST 27. ALT 35. Amylase 54. Lipase 48. IMAGING: Abdominal ultrasound: Gallbladder stones and sludge and mildly distended gallbladder. Positive sonographic Madrigal sign. Findings may represent acute cholecystitis. ASSESSMENT: 1. Acute cholecystitis PLAN: NPO. Patient to undergo laparoscopic cholecystectomy today with Dr. Melendrez Patient instructed not to breast feed for 12-24 hours after surgery Nurse practitioner note has been reviewed by physician. Signing provider agrees with the documented findings, assessment, and plan of care. Past Medical History Past Medical History: Hyperlipidemia, Thyroid Disorder Additional Past Medical History / Comment(s): Hypothyroid, seasonal allergies. History of Any Multi-Drug Resistant Organisms: None Reported Past Surgical History: Orthopedic Surgery Additional Past Surgical History / Comment(s): Left Wrist with plate. Past Anesthesia/Blood Transfusion Reactions: No Reported Reaction Additional Past Anesthesia/Blood Transfusion Reaction / Comment(s): STATES IT "TAKES A LOT OF ANESTHESIA AND IT WEARS OFF QUICKLY". Lidocaine usually never works and she never really gets numb. Smoking Status: Never smoker - Past Family History Mother Family Medical History: Cancer Additional Family Medical History / Comment(s): Thyroid Cancer Father History Unknown: Yes Family Medical History: Coronary Artery Disease (CAD), Hyperlipidemia Additional Family Medical History / Comment(s): Father from hyperlipidemia at the age of 27yrs. Medications and Allergies Home Medications Medication Instructions Recorded Confirmed Type No Known Home Medications 03/21/19 03/21/19 History Allergies Allergy/AdvReac Type Severity Reaction Status Date / Time No Known Allergies Allergy Verified 03/21/19 06:44 Surgical - Exam Vital Signs Temp Pulse Resp BP Pulse Ox 98.4 F 76 20 114/64 100 03/21/19 00:18 03/21/19 00:18 03/21/19 00:18 03/21/19 00:18 03/21/19 00:18 Results - Labs 03/21/19 00:42 03/21/19 00:42 Abnormal Lab Results - Last 24 Hours (Table) 03/21/19 03/21/19 Range/Units 00:42 00:42 Hct 46.1 H (34.0-46.0) % Chloride 108 H (98-107) mmol/L Diabetes panel 03/21/19 Range/Units 00:42 Sodium 142 (137-145) mmol/L Potassium 4.3 (3.5-5.1) mmol/L Chloride 108 H (98-107) mmol/L Carbon Dioxide 24 (22-30) mmol/L BUN 15 (7-17) mg/dL Creatinine 0.78 (0.52-1.04) mg/dL Glucose 95 (74-99) mg/dL Calcium 9.9 (8.4-10.2) mg/dL AST 27 (14-36) U/L ALT 35 (9-52) U/L Alkaline Phosphatase 117 (38-126) U/L Total Protein 7.7 (6.3-8.2) g/dL Albumin 4.1 (3.5-5.0) g/dL Calcium panel 03/21/19 Range/Units 00:42 Calcium 9.9 (8.4-10.2) mg/dL Albumin 4.1 (3.5-5.0) g/dL Pituitary panel 03/21/19 Range/Units 00:42 Sodium 142 (137-145) mmol/L Potassium 4.3 (3.5-5.1) mmol/L Chloride 108 H (98-107) mmol/L Carbon Dioxide 24 (22-30) mmol/L BUN 15 (7-17) mg/dL Creatinine 0.78 (0.52-1.04) mg/dL Glucose 95 (74-99) mg/dL Calcium 9.9 (8.4-10.2) mg/dL Adrenal panel 03/21/19 Range/Units 00:42 Sodium 142 (137-145) mmol/L Potassium 4.3 (3.5-5.1) mmol/L Chloride 108 H (98-107) mmol/L Carbon Dioxide 24 (22-30) mmol/L BUN 15 (7-17) mg/dL Creatinine 0.78 (0.52-1.04) mg/dL Glucose 95 (74-99) mg/dL Calcium 9.9 (8.4-10.2) mg/dL Total Bilirubin 0.5 (0.2-1.3) mg/dL AST 27 (14-36) U/L ALT 35 (9-52) U/L Alkaline Phosphatase 117 (38-126) U/L Total Protein 7.7 (6.3-8.2) g/dL Albumin 4.1 (3.5-5.0) g/dL <Berny Melendrez - Last Filed: 03/21/19 12:01> Surgical - Exam Vital Signs Temp Pulse Resp BP Pulse Ox 98.4 F 76 20 114/64 100 03/21/19 00:18 03/21/19 00:18 03/21/19 00:18 03/21/19 00:18 03/21/19 00:18 Results - Labs 03/21/19 00:42 03/21/19 00:42 Abnormal Lab Results - Last 24 Hours (Table) 03/21/19 03/21/19 Range/Units 00:42 00:42 Hct 46.1 H (34.0-46.0) % Chloride 108 H (98-107) mmol/L Diabetes panel 03/21/19 Range/Units 00:42 Sodium 142 (137-145) mmol/L Potassium 4.3 (3.5-5.1) mmol/L Chloride 108 H (98-107) mmol/L Carbon Dioxide 24 (22-30) mmol/L BUN 15 (7-17) mg/dL Creatinine 0.78 (0.52-1.04) mg/dL Glucose 95 (74-99) mg/dL Calcium 9.9 (8.4-10.2) mg/dL AST 27 (14-36) U/L ALT 35 (9-52) U/L Alkaline Phosphatase 117 (38-126) U/L Total Protein 7.7 (6.3-8.2) g/dL Albumin 4.1 (3.5-5.0) g/dL Calcium panel 03/21/19 Range/Units 00:42 Calcium 9.9 (8.4-10.2) mg/dL Albumin 4.1 (3.5-5.0) g/dL Pituitary panel 03/21/19 Range/Units 00:42 Sodium 142 (137-145) mmol/L Potassium 4.3 (3.5-5.1) mmol/L Chloride 108 H (98-107) mmol/L Carbon Dioxide 24 (22-30) mmol/L BUN 15 (7-17) mg/dL Creatinine 0.78 (0.52-1.04) mg/dL Glucose 95 (74-99) mg/dL Calcium 9.9 (8.4-10.2) mg/dL Adrenal panel 03/21/19 Range/Units 00:42 Sodium 142 (137-145) mmol/L Potassium 4.3 (3.5-5.1) mmol/L Chloride 108 H (98-107) mmol/L Carbon Dioxide 24 (22-30) mmol/L BUN 15 (7-17) mg/dL Creatinine 0.78 (0.52-1.04) mg/dL Glucose 95 (74-99) mg/dL Calcium 9.9 (8.4-10.2) mg/dL Total Bilirubin 0.5 (0.2-1.3) mg/dL AST 27 (14-36) U/L ALT 35 (9-52) U/L Alkaline Phosphatase 117 (38-126) U/L Total Protein 7.7 (6.3-8.2) g/dL Albumin 4.1 (3.5-5.0) g/dL Assessment and Plan Plan: We'll perform laparoscopic cholecystectomy
[2019-03-21] MEDS ORDERED: PIPERACILLIN-TAZOBACTAM 3.375 GM in SODIUM CHLORIDE 0.9% 100 ML IVPB STA (11:45)
[2019-03-21] MEDS ORDERED: LACTATED RINGERS 1,000 ML IV ONE ×2 (11:54→13:52)
[2019-03-21] MEDS ORDERED: DEXAMETHASONE SOD PHOSPHATE 10 MG/ML 1 ML VIAL IV ONE (12:03)
[2019-03-21] MEDS ORDERED: ceFAZolin 2 GM in SODIUM CHLORIDE 0.9% 100 ML IVPB ONE (12:10)
[2019-03-21] MEDS ORDERED: ceFAZolin IN SWFI 2 GM/20 ML SYRINGE IVP ONE (12:15)
[2019-03-21] MEDS ORDERED: HEPARIN SODIUM,PORCINE 5,000 UNIT/ML 1 ML VIAL SQ ONE (12:16)
[2019-03-21] MEDS ORDERED: KETOROLAC 30 MG/ML 1 ML VIAL ONE (12:25)
[2019-03-21] MEDS ORDERED: fentaNYL (PF) 50 MCG/ML 2 ML AMP ONE (12:25)
[2019-03-21] MEDS ORDERED: SUCCINYLCHOLINE CHLORIDE 100 MG/5 ML SYR IV ONE (12:25)
[2019-03-21] MEDS ORDERED: MIDAZOLAM 2 MG/2 ML VIAL ONE (12:25)
[2019-03-21] MEDS ORDERED: GLYCOPYRROLATE 0.2 MG/ML 2 ML VIAL ONE (12:25)
[2019-03-21] MEDS ORDERED: LIDOCAINE 1% INJ 10MG/ML (20 ML MDV) ONE (12:25)
[2019-03-21] MEDS ORDERED: HYDROmorphone (PF) 1 MG/ML ONE (12:25)
[2019-03-21] MEDS ORDERED: NEOSTIGMINE 1 MG/ML 10 ML VIAL ONE (12:25)
[2019-03-21] MEDS ORDERED: ROCURONIUM BROMIDE 10 MG/ML 10 ML VIAL IV ONE (12:25)
[2019-03-21] MEDS ORDERED: PROPOFOL 10 MG/ML 20 ML VIAL IV ONE (12:25)
[2019-03-21] MEDS ORDERED: BUPIVACAINE (PF) 0.25% 30 ML VIAL SQ ONE (12:53)
--- NOTE | 2019-03-21 13:12 | P.OP ---
Date of Procedure: 03/21/19 Preoperative Diagnosis: Cholecystitis Postoperative Diagnosis: Cholecystitis Procedure(s) Performed: Laparoscopic cholecystectomy Anesthesia: NELLY Surgeon: Berny Melendrez Estimated Blood Loss (ml): 20 Pathology: other (Gallbladder) Condition: stable Disposition: PACU Description of Procedure: The patient was placed on the operating table. The patient received a general endotracheal tube anesthesia. The patients abdomen was prepped and draped in the usual sterile fashion. Through an infraumbilical stab incision, the fascia of the anterior abdominal wall was grasped with a pair of Kochers and then the Veress needle was placed in the peritoneal cavity. Position of the Veress needle was confirmed with positive drop test. The abdomen was then insufflated. After adequate insufflation, the 10 mm trocar was placed in the peritoneal cavity. Following this the laparoscope was placed in the peritoneal cavity. The patient was placed in the head-up, right side up position and then a 5 mm trocar was placed in the right lateral and right subcostal position under direct visualization. A 8 mm trocar was placed in the epigastric position. The gallbladder was grasped in the fundus and infundibulum. Traction on the gallbladder was placed in the lateral and the cephalad positions. The triangle of Calot was visualized.. The cystic duct was bluntly dissected until the union of the cystic duct and common bile duct was seen. A critical view of safety was achieved. The cystic duct was then divided and sealed with the Harmonic scissors. A PDS Endoloop was then placed throughout the cystic duct stump. The cystic artery divided and sealed with the Harmonic scissors. The gallbladder was then removed from the liver bed using Harmonic scissors. The gallbladder was then extracted through the epigastric port site. Operative field was checked for any bleeding spots and Harmonic scissors was used to coagulate the liver bed. The abdomen was irrigated. The trocars were removed. The skin was closed using interrupted 3-0 Vicryl suture. Dermabond dressing were applied. The patient tolerated the procedure well.
[2019-03-21] MEDS ORDERED: ONDANSETRON 4 MG/2 ML VIAL IVP ONE (13:27)
[2019-03-21 13:34] VITALS: TEMP 97.8
[2019-03-21] MEDS ORDERED: HYDROmorphone 1 MG/ML 1 ML SYRINGE IVP ONE ×2 (13:46→13:54)
[2019-03-21 13:56] VITALS: RESP 16
[2019-03-21 15:01] VITALS: BP 102/64; PULSE 83
[2019-03-21] MEDS ORDERED: PIPERACILLIN-TAZOBACTAM 3.375 GM in SODIUM CHLORIDE 0.9% 100 ML IVPB SCH (20:00)
== END 2019-03-21 15:49 | disposition home or self-care (01) ==
LOC: EC 00:12 → 4SSUR 02:35
PROVIDERS: ADMIT Surgery; ATTEND Surgery
DX: O99.63 Diseases of the digestive system complicating the puerperium (principal); K80.12 Calculus of gallbladder with acute and chronic cholecystitis without obstruction; O99.285 Endocrine, nutritional and metabolic diseases complicating the puerperium; E03.9 Hypothyroidism, unspecified; J30.2 Other seasonal allergic rhinitis; O99.89 Other specified diseases and conditions complicating pregnancy, childbirth and the puerperium; E78.5 Hyperlipidemia, unspecified; Z80.8 Family history of malignant neoplasm of other organs or systems; Z82.49 Family history of ischemic heart disease and other diseases of the circulatory system
CPT/HCPCS: 47562; 96372; 96360; 96361; 99284; 36415; 88304; 80053; 82150; 83690; 85025; 76705; G0378; J2250; J1644; J1100; J2710; J2405; J2001; J3010; J1885; J1170; J0330; J2704; J0690

== ENCOUNTER → 2019-10-26 | Outpatient (CLI) | payer OTHER ==
--- NOTE | 2019-10-27 07:25 | US ---
EXAMINATION TYPE: US thyroid st tissue head/neck DATE OF EXAM: 10/26/2019 COMPARISON: US CLINICAL HISTORY: E04.9 enlarged thyroid. GLAND SIZE: Right Lobe: 5.0 x 1.8 x 1.6 cm Overall Parenchyma: homogenous Left Lobe: 4.2 x 1.4 x 1.2 cm Overall Parenchyma: homogeneous Isthmus Thickness: 0.5 cm NODULES RIGHT: # of nodules measured on right: 1 largest with a couple of other subcentimeter nodules 1. 0.9 X 0.7 x 0.8 cm hypoechoic mixed nodule at the mid pole with poorly defined margins. This no dule is taller than wide and shows no intranodular vascularity. Prior size: 0.9 x 0.8 x 0.6 cm LEFT: # of nodules measured on left: 1 1. 0.2 X 0.3 x 0.1 cm hypoechoic cystic nodule at the upper lateral pole with well-defined margins. This nodule is wider than tall and shows no intranodular vascularity. ISTHMUS: # of nodules measured in the isthmus: 0 Bilateral neck scanned: no evidence of lymphadenopathy. IMPRESSION: 1. Bilateral subcentimeter nodules largest on the right is stable from comparison.
== END | disposition home or self-care (01) ==
LOC: RADUSWWP 15:56
PROVIDERS: ATTEND Internal Medicine
DX: E04.1 Nontoxic single thyroid nodule (principal)
CPT/HCPCS: 76536

== ENCOUNTER → 2022-03-03 | Outpatient (CLI) | payer OTHER ==
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
== END ==
LOC: CPPFTMAIN 11:30
PROVIDERS: ATTEND Family Medicine
DX: R07.9 Chest pain, unspecified (principal); R06.02 Shortness of breath
CPT/HCPCS: 71046; 93005; 94060; 94726; 94729

== ENCOUNTER → 2022-08-10 | Outpatient (CLI) | payer OTHER ==
--- NOTE | 2022-08-11 09:22 | CA ---
Transthoracic Echo Report Name: Cami Dickerson Age: 31 Gender: F : 1990 Exam Date: 08/10/2022 13:24 Exam Location: [facility] Ht (in): 65 Wt (lb): 290 Ordering Physician: Ramy Spangler MD Attending/Referring Phys: Circuit Manager Ptera Simmons RDCS Procedure CPT: Indications: R06.00 Dyspnea Cardiac Hx: Technical Quality: Fair Contrast 1: Total Dose (mL): Contrast 2: Total Dose (mL): MEASUREMENTS (Male / Female) Normal Values 2D ECHO LV Diastolic Diameter PLAX 4.8 cm 4.2 - 5.9 / 3.9 - 5.3 cm LV Systolic Diameter PLAX 4.0 cm IVS Diastolic Thickness 1.0 cm 0.6 - 1.0 / 0.6 - 0.9 cm LVPW Diastolic Thickness 1.2 cm 0.6 - 1.0 / 0.6 - 0.9 cm LV Relative Wall Thickness 0.5 M-MODE Aortic Root Diameter MM 3.1 cm MV E Point Septal Separation 0.2 cm DOPPLER MV Area PHT 4.3 cm??? Mitral E Point Velocity 58.6 cm/s Mitral A Point Velocity 49.6 cm/s Mitral E to A Ratio 1.2 MV Deceleration Time 176.0 ms MV E' Velocity 7.3 cm/s Mitral E to MV E' Ratio 8.1 FINDINGS Left Ventricle Left ventricular ejection fraction is estimated at 55-60 %. Mildly increased left ventricular wall thickness.left ventricular cavity size normal. Right Ventricle Normal right ventricular size and function. Right Atrium Normal right atrial size. Left Atrium Normal left atrial size. Mitral Valve Structurally normal mitral valve. Mild mitral regurgitation. Aortic Valve Trileaflet aortic valve. Tricuspid Valve Structurally normal tricuspid valve. Pulmonic Valve Pulmonic valve not well visualized. Pericardium Normal pericardium. Aorta Normal size aortic root and proximal ascending aorta. CONCLUSIONS 1. Technically difficult study 2. Normal size and systolic function 3. Mild mitral regurgitation Previewed by: Dr. Nory Roberts MD (Electronically Signed) Final Date: 11 August 2022 09:21
== END | disposition home or self-care (01) ==
LOC: RADECHMAIN 13:09
PROVIDERS: ATTEND Internal Medicine
DX: I07.1 Rheumatic tricuspid insufficiency (principal)
CPT/HCPCS: 93306

== ENCOUNTER 2023-10-13 06:06 | Day surgery (SDC) | payer BC, OTHER ==
[~2023-10-13 06:06] MED LIST: Pre Op ABX Message 1 EACH MISC MISCELLANE ONE
[2023-10-13] MEDS ORDERED: ONDANSETRON 4 MG/2 ML VIAL ONE (06:49)
[2023-10-13] MEDS ORDERED: LACTATED RINGERS 1,000 ML IV ONE (06:58)
[2023-10-13] MEDS ORDERED: DEXAMETHASONE SOD PHOSPHATE 4 MG/ML 1 ML VIAL IVP ONE (06:59)
[2023-10-13] MEDS ORDERED: LIDOCAINE 1% INJ 10MG/ML (20 ML MDV) ONE (07:25)
[2023-10-13] MEDS ORDERED: SUCCINYLCHOLINE CHLORIDE 200 MG/10 ML VIAL IV ONE (07:25)
[2023-10-13] MEDS ORDERED: fentaNYL (PF) 50 MCG/ML 2 ML AMP ONE (07:25)
[2023-10-13] MEDS ORDERED: MIDAZOLAM 2 MG/2 ML VIAL ONE (07:25)
[2023-10-13] MEDS ORDERED: PROPOFOL 10 MG/ML 20 ML VIAL IV ONE (07:25)
[2023-10-13] MEDS ORDERED: KETOROLAC 15 MG/ML 1 ML VIAL ONE (07:25)
[2023-10-13] MEDS ORDERED: SORBITOL 3% IRRIG 3,000 ML BAG IRRIGATION ONE (07:30)
[2023-10-13] MEDS ORDERED: Acetaminophen-Codeine 300-30mg TAB PO PRN ×2 (08:07)
[2023-10-13] MEDS ORDERED: ONDANSETRON 4 MG/2 ML VIAL IVP PRN (08:07)
[2023-10-13] MEDS ORDERED: KETOROLAC 15 MG/ML 1 ML VIAL IVP PRN (08:07)
[2023-10-13] MEDS ORDERED: METOCLOPRAMIDE 5 MG/ML 2 ML VIAL IVP PRN (08:07)
[2023-10-13] MEDS ORDERED: diphenhydrAMINE 50 MG/ML 1 ML VIAL IVP PRN (08:07)
[2023-10-13] MEDS ORDERED: IBUPROFEN 600 MG TAB PO PRN (08:07)
[2023-10-13] MEDS ORDERED: SIMETHICONE 80 MG CHEWABLE PO PRN (08:07)
--- NOTE | 2023-10-13 08:12 | P.OP ---
Date of Procedure: 10/13/23 Preoperative Diagnosis: #1. Dysfunctional uterine bleeding #2. Thickened endometrial stripe Postoperative Diagnosis: Same Procedure(s) Performed: #1. Diagnostic hysteroscopy #2. Dilation and sharp curettage Anesthesia: NELLY Surgeon: Guido Catalan Estimated Blood Loss (ml): 5 IV fluids (ml): 200 Urine output (ml): 10 Pathology: other (Endometrial curettings) Condition: stable Disposition: PACU Operative Findings: Gravid pelvic examination demonstrated a roughly 6 week midplane mobile normal shaped uterus with normal adnexa bilaterally. Intraoperatively, the uterus sounded to approximately 10 cm. Using the hysteroscope, there was a significant amount of shaggy endometrial tissue throughout the cavity and neither tubal ostia could be clearly visualized. There was a moderate to significant amount of tissue produced onto the Telfa in the vagina. The typical gritty texture was encountered throughout the curettage. Description of Procedure: The patient was prepped and draped in usual fashion after general endotracheal anesthesia was administered by the anesthesiologist. A weighted speculum was placed and the bladder drained of approximately 10 mL of clear louise urine. The anterior lip of the cervix was grasped with a single-tooth tenaculum and uterus sounded to 10 cm as noted above. Serial dilation was carried out to admit the diagnostic hysteroscope which was placed into the endometrial cavity and the cavity distended with sorbitol. The findings are as noted above with a significant amount of shaggy tissue throughout. Neither tubal ostia were clearly seen secondary to the degree of redundant tissue. There was no obvious pathology present. The hysteroscope was removed and set aside and a medium sharp curet introduced. Thorough and circumferential curettage was carried out onto a Telfa in the vagina producing a moderate to significant amount tissue though the typical gritty texture was encountered throughout curettage. A polyp forceps was then introduced and any loose tissue removed but no polypoid or attached tissue was noted. One last pass was made with the sharp curet. There was minimal ongoing bleeding from the cervix. The tenaculum was released and there was some bleeding from the tenaculum points which was made hemostatic with pressure. Estimated blood loss for the case was 5 mL. There were no complications. All sponge, instrument, needle counts were correct. The patient tolerated the procedure well and proceeded to the recovery room in stable condition.
[2023-10-13 08:44] VITALS: TEMP 97.5
[2023-10-13] MEDS: LACTATED RINGERS 1,000 ML IV SCH ×2 (08:48→09:05)
[2023-10-13 09:31] VITALS: BP 122/87; PULSE 106; RESP 18
[2023-10-14] MEDS ORDERED: ACETAMINOPHEN TAB 325 MG TAB PO PRN (08:08)
== END 2023-10-13 09:53 | disposition home or self-care (01) ==
LOC: OR 06:06
PROVIDERS: ATTEND Obstetrics & Gynecology
DX: N93.8 Other specified abnormal uterine and vaginal bleeding (principal); J45.909 Unspecified asthma, uncomplicated; E03.9 Hypothyroidism, unspecified; Z79.890 Hormone replacement therapy; Z98.890 Other specified postprocedural states; Z79.899 Other long term (current) drug therapy
CPT/HCPCS: 58558; 81025; 88305; J2250; J0330; J1100; J2405; J2001; J3010; J1885; J2704